=== PATIENT | female | born 1985 | race Caucasian/White ===

== ENCOUNTER → 2017-09-20 | Outpatient (CLI) | payer BC ==
[~2017-09-20] MED LIST: IBUP-1221 PO; METO10TA82 PO; ONDA4TAB7 PO; OXYC-302 PO
== END ==
LOC: RAD 16:08
PROVIDERS: ATTEND Nurse Practitioner
DX: N83.8 Other noninflammatory disorders of ovary, fallopian tube and broad ligament (principal)
CPT/HCPCS: 76856

== ENCOUNTER → 2018-04-04 | Outpatient (CLI) | payer BC ==
[~2018-04-04] MED LIST changes: +FENTANYL PF 100 MCG/2ML ONE; +MIDAZOLAM 1 MG/ML, 2ML ONE
[2018-04-04 13:27] LABS: BASOPHILS # (AUTO) 0.04 x10^3/uL (0-0.1); BASOPHILS % (AUTO) 0 % (0-1); EOSINOPHILS # (AUTO) 0.26 x10^3/uL (0-0.4); EOSINOPHILS % (AUTO) 2 % (1-7); LYMPHOCYTES # (AUTO) 2.06 x10^3/uL (1-3.4); LYMPHOCYTES % (AUTO) 16 % (22-44); MD NO; MEAN CORPUSCULAR HEMOGLOBIN 32.5 pg (27.0-34.8); MEAN CORPUSCULAR HGB CONC 34.1 g/dL (32.4-35.8); MEAN CORPUSCULAR VOLUME 95.3 fL (80-100); MEAN PLATELET VOLUME 8.1 fL (7.4-10.4); MONOCYTES # (AUTO) 0.62 x10^3/uL (0.2-0.8); MONOCYTES % (AUTO) 5 % (2-9); NEUTROPHILS # (AUTO) 9.63 x10^3/uL (1.8-6.8); NEUTROPHILS % (AUTO) 76 % (42-75); PLATELET COUNT 294 x10^3/uL (130-400); RED BLOOD COUNT 4.52 x10^6/uL (3.82-5.3)
[2018-04-04 13:39] LABS: ANION GAP 7 mmol/L (5-15); CALCIUM 9.1 mg/dL (8.5-10.1); CHLORIDE 108 mmol/L (98-107)
[2018-04-04 13:44] LABS: CREATININE 0.93 mg/dL (0.55-1.02)
[2018-04-04 13:45] LABS: ALANINE AMINOTRANSFERASE 73 U/L (12-78); ALKALINE PHOSPHATASE 75 U/L (45-117); BILIRUBIN,TOTAL 0.8 mg/dL (0.2-1.0); TOTAL PROTEIN 7.9 g/dL (6.4-8.2)
[2018-04-04 14:32] LABS: MICROSCOPIC INDICATED
[2018-04-04 14:36] LABS: CULTURE INDICATED? YES
== END | disposition home or self-care (01) ==
LOC: STAR 12:35
PROVIDERS: ATTEND Obstetrics & Gynecology
DX: Z01.818 Encounter for other preprocedural examination (principal); N85.8 Other specified noninflammatory disorders of uterus
CPT/HCPCS: 36415; 80053; 81001; 84702; 85025; 87086

== ENCOUNTER 2018-04-08 10:18 | Day surgery (SDC) | payer BC ==
[2018-04-04 13:01] VITALS: BP 123/81
[~2018-04-08] VITALS: Ht 162.6 cm; Wt 86.3 kg
[~2018-04-08 10:18] MED LIST changes: -FENTANYL PF 100 MCG/2ML ONE; -MIDAZOLAM 1 MG/ML, 2ML ONE
[2018-04-08] MEDS ORDERED: LACTATED RINGERS 1,000 ML IV SCH (10:54)
[2018-04-08 11:06] LABS: HCG UR SG 1.023 (1.003-1.030)
[2018-04-08] MEDS ORDERED: BUPIVACAINE/PF-EPI 0.25% 1:200K ONE (11:49)
[2018-04-08] MEDS ORDERED: SILVER NITRATE STICK TP ONE (11:49)
[2018-04-08] MEDS ORDERED: SUCCINYLCHOLINE 20 MG/ML, 10ML ONE (12:40)
[2018-04-08] MEDS ORDERED: PROPOFOL 10 MG/ML, 20ML ONE (12:40)
[2018-04-08] MEDS ORDERED: ROCURONIUM 10 MG/ML,10ML ONE (12:40)
[2018-04-08] MEDS ORDERED: DEXAMETHASONE 4 MG/ML, 1ML ONE (12:40)
[2018-04-08] MEDS ORDERED: ONDANSETRON 2MG/ML, 2ML ONE (12:40)
[2018-04-08] MEDS ORDERED: KETOROLAC 30 MG/1 ML ONE (12:40)
[2018-04-08] MEDS ORDERED: CEFAZOLIN 1,000 MG ONE (12:40)
[2018-04-08] MEDS ORDERED: LABETALOL 5MG/ML, 20ML IV PRN (14:30)
[2018-04-08] MEDS ORDERED: PROMETHAZINE 25 MG/ML, 1ML IV PRN (14:30)
[2018-04-08] MEDS ORDERED: MEPERIDINE/PF 25MG/0.5ML IVPush PRN (14:30)
[2018-04-08] MEDS ORDERED: hydrALAzine 20 MG/ML, 1ML IV PRN (14:30)
[2018-04-08] MEDS ORDERED: ONDANSETRON 2MG/ML, 2ML IVPush PRN (14:30)
[2018-04-08] MEDS ORDERED: OXYcodone 5 MG/5 ML ORAL.SOL UDC PO PRN (14:30)
[2018-04-08] MEDS ORDERED: KETOROLAC 30 MG/1 ML IV PRN (14:30)
[2018-04-08] MEDS ORDERED: HYDROmorphone 1 MG/ML, 1ML IV PRN (14:30)
[2018-04-08] MEDS ORDERED: METOCLOPRAMIDE 5 MG/ML, 2ML IV PRN (14:30)
[2018-04-08] MEDS ORDERED: FENTANYL PF 100 MCG/2ML IV PRN (14:30)
[2018-04-08] MEDS ORDERED: ALBUTEROL SULFATE 2.5 MG/3 ML NPPB PRN (14:30)
[2018-04-08] MEDS ORDERED: OXYcodone 5 MG/5 ML ORAL.SOL UDC ONE (14:36)
[2018-04-08] MEDS ORDERED: ACETAMINOPHEN 650 MG/20.3 ML UDC ONE (14:36)
[2018-04-08] MEDS ORDERED: FENTANYL PF 100 MCG/2ML ONE (14:36)
[2018-04-08] MEDS ORDERED: ACETAMINOPHEN 650 MG/20.3 ML UDC PO STA (14:40)
== END 2018-04-08 16:31 | disposition home or self-care (01) ==
LOC: OUT 10:18
PROVIDERS: ATTEND Obstetrics & Gynecology
DX: D25.9 Leiomyoma of uterus, unspecified (principal); N83.201 Unspecified ovarian cyst, right side; N85.8 Other specified noninflammatory disorders of uterus; N73.6 Female pelvic peritoneal adhesions (postinfective); N80.8 Other endometriosis; F17.210 Nicotine dependence, cigarettes, uncomplicated; D64.9 Anemia, unspecified; Z98.890 Other specified postprocedural states; Z90.710 Acquired absence of both cervix and uterus; Z91.018 Allergy to other foods
CPT/HCPCS: 36415; 58662; 81025; 86850; 86900; 88305; J0330; J0690; J1100; J1885; J2250; J2405; J2704; J3010; J7120